=== PATIENT | female | born 1970 | race African-American/Black ===

== ENCOUNTER 2019-05-24 13:35 | Emergency (ER) | payer MEDICAID, OTHER ==
[~2019-05-24] VITALS: Ht 162.6 cm; Wt 100.0 kg
[2019-05-24 14:12] VITALS: BP 137/73
[2019-05-24 15:17] LABS: CLARITY URINE CLOUDY (CLEAR); COLOR URINE YELLOW (YELLOW); KETONES URINE NEGATIVE (NEGATIVE); LEUKOCYTE ESTERASE URINE NEGATIVE (NEGATIVE); NITRITE URINE NEGATIVE (NEGATIVE); OCCULT BLOOD URINE NEGATIVE (NEGATIVE); PROTEIN URINE NEGATIVE (NEGATIVE); SPECIFIC GRAVITY URINE 1.019 (1.005-1.030)
[2019-05-24] MEDS ORDERED: IBUPROFEN 600MG TABLET PO ONE (15:45)
[2019-05-24 16:08] LABS: EOSINOPHILS % 1.5 % (0.0-5.0); HEMOGLOBIN. 14.2 g/dL (12.0-16.0); LYMPHOCYTES % 35.1 % (20.0-50.0); MEAN CORPUSCULAR HEMOGLOBIN 30.3 pg (28.0-32.0); MEAN CORPUSCULAR VOLUME 87.6 fL (81.0-99.0); MEAN PLATELET VOLUME 9.2 fl (7.4-10.4); MONOCYTES % 6.9 % (2.0-8.0); NEUTROPHILS % 55.5 % (40.0-76.0); PLATELET 292 x1000/uL (130-400); RED BLOOD CELL COUNT 4.69 mill/uL (4.2-5.4); RED CELL DISTRIBUTION WIDTH 14.5 % (11.6-14.6)
[2019-05-24 16:10] LABS: CHLORIDE 111 mEq/L (98-107)
[2019-05-24 16:15] LABS: ETHANOL BLOOD < 10 mg/dL
[2019-05-24 16:29] LABS: HCG SCREEN NEGATIVE
== END 2019-05-24 18:13 | disposition home or self-care (01) ==
LOC: ER 13:35
DX: M25.562 Pain in left knee (principal); R55 Syncope and collapse; Z90.49 Acquired absence of other specified parts of digestive tract; Z88.5 Allergy status to narcotic agent; Z88.6 Allergy status to analgesic agent
CPT/HCPCS: 36415; 71045; 73562; 80053; 80320; 81003; 81025; 83880; 84703; 85025; 93005; 99285; G0480